=== PATIENT | male | born 1960 | race Two or more races ===

== ENCOUNTER 2023-05-06 09:33 | Emergency (ER) | payer OTHER, SELFPAY ==
[2023-05-06] VITALS (14 sets, daily range): BP systolic 127–182; BP diastolic 59–93; PULSE 67–94; RESP 9–20; TEMP 36.6; O2SAT 98–100; BMI 33.0
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
--- NOTE | 2023-05-06 21:35 | ECG_ITS ---
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
== END 2023-05-06 10:39 | disposition home or self-care (01) ==
PROVIDERS: Emergency Provider Emergency Medicine Emergency Medical Services
DX: T63.441A Toxic effect of venom of bees, accidental (unintentional), initial encounter (principal); F17.210 Nicotine dependence, cigarettes, uncomplicated; Z79.899 Other long term (current) drug therapy; Z79.84 Long term (current) use of oral hypoglycemic drugs
CPT/HCPCS: 93005; 99283